=== PATIENT | male | born 1985 | race Caucasian/White ===

== ENCOUNTER 2018-02-04 13:27 | Emergency (ER) | payer MEDICAID, BC ==
[2018-02-04] MEDS: IBUPROFEN 200 MG TAB PO (14:15)
== END 2018-02-04 15:04 | disposition home or self-care (01) ==
LOC: FTE 13:27
DX: S29.011A Strain of muscle and tendon of front wall of thorax, initial encounter (principal); R07.9 Chest pain, unspecified; X58.XXXA Exposure to other specified factors, initial encounter; Y92.89 Other specified places as the place of occurrence of the external cause
CPT/HCPCS: 93005; 99283-25

== ENCOUNTER 2018-05-02 14:34 | Emergency (ER) | payer BC, MEDICAID | END 2018-05-02 15:51 | disposition home or self-care (01) | LOC: FTE 14:34 | DX: J33.9 Nasal polyp, unspecified (principal) | CPT/HCPCS: 99283; Z7502 ==

== ENCOUNTER 2019-01-04 19:08 | Emergency (ER) | payer BC | END 2019-01-04 22:50 | disposition home or self-care (01) | LOC: FTE 19:08 | DX: G47.00 Insomnia, unspecified (principal) | CPT/HCPCS: 99282; Z7502 ==